=== PATIENT | male | born 1965 | race Caucasian/White ===

== ENCOUNTER 2025-04-02 04:37 | Emergency (ER) | payer BC ==
[~2025-04-02] VITALS: Ht 180.3 cm; Wt 124.7 kg
[2025-04-02] MEDS ORDERED: ASPIRIN, CHEWABLE 81 MG TAB PO ONE (04:45)
[2025-04-02] MEDS ORDERED: NITROGLYCERIN 0.4 MG BOT SL ONE (05:00)
[2025-04-02 05:57] LABS: BASO # 0.0 10*3/uL (0.0-0.1); BASO % 0.3 % (0.0-1.0); EOS # 0.3 10*3/uL (0.0-0.4); EOS % 3.0 % (1.0-4.0); MEAN CELL VOLUME 97.3 fl (80.0-94.0); MEAN CORPUSCULAR HGB 32.3 pg (27.0-31.0); MEAN PLATELET VOLUME 9.0 fl (9.6-12.3); MONO # 1.0 10*3/uL (0.1-1.0); MONO % 9.7 % (3.0-9.0); NEUT # 6.9 10*3/uL (2.3-7.9); NEUT % 67.7 % (47.0-73.0); NUCLEATED RED BLOOD CELL 0.0 % (0.0-0.0); NUCLEATED RED BLOOD CELL 0.0 10*3/uL (0.0-0.0); PLATELET COUNT AUTOMATED 310 10*3/uL (130-400); RED CELL DISTRI WIDTH 12.1 % (0-14.5)
[2025-04-02 05:59] LABS: BUN 20 mg/dl (9-23)
[2025-04-02 06:15] LABS: ACT PARTIAL THROMBO TIME 26.5 SECONDS (20.0-32.1)
[2025-04-02] MEDS ORDERED: Ondansetron Hydrochloride 4 MG/2 ML VIAL IV ONE (06:25)
[2025-04-02] MEDS ORDERED: HYDROmorphONE Hydrochloride 0.5 MG/0.5 ML SYRINGE IV ONE (06:25)
[2025-04-02] MEDS ORDERED: SODIUM CHLORIDE 0.9% 100 ML BAG IV ONE (07:45)
[2025-04-02] MEDS ORDERED: HEPARIN SODIUM 250 ML IV SCH (07:45)
[2025-04-02] MEDS ORDERED: IOHEXOL 350 MG/ML 100 ML VIAL IV ONE ×2 (07:45→08:09)
[2025-04-02] MEDS ORDERED: SODIUM CHLORIDE 0.9% 100 ML IV ONE (08:09)
[2025-04-02] MEDS ORDERED: TICAGRELOR 90 MG TABLET PO ONE (08:25)
== END 2025-04-02 09:00 | disposition short-term general hospital (02) ==
LOC: ED 04:37
PROVIDERS: Internal Medicine
DX: R07.89 Other chest pain (principal); I10 Essential (primary) hypertension